=== PATIENT | male | born 1950 | race Caucasian/White ===

== ENCOUNTER 2017-02-22 10:19 | Day surgery (SDC) | payer MEDICARE ==
[~2017-02-22] VITALS: Ht 167.6 cm; Wt 86.6 kg
[~2017-02-22 10:19] MED LIST: 0.9% Sodium Chloride 1,000 ML IV SCH; ALBU8.5H2 INHALATION; CHOL10008 PO; FEXO-123 PO; MOME13HF IH; OMEG-38 PO; OMEP20CA11 PO; Sodium Chloride LOK Flush 10 mL Syringe IV PRN; TRIA10.8 NS; TURM500C7 PO; VITA150T PO; fentaNYL-PF 50 mCg/mL 2 mL Inj IVPUSH PRN
[2017-02-22 11:03] VITALS: BP 137/80; PULSE 62; O2SAT 97
[2017-02-22] MEDS ORDERED: Albuterol 2.5 mg/3 mL Inhalation Solution NEB ONE (11:55)
[2017-02-22 11:58] VITALS: BP 136/81; PULSE 69; RESP 18; O2SAT 98
[2017-02-22 12:07] VITALS: BP 146/79; PULSE 66; RESP 17; O2SAT 96
[2017-02-22 12:18] VITALS: BP 144/76; PULSE 79; RESP 17; O2SAT 95
--- NOTE | 2017-02-22 16:26 | ENDO ---
[address] [address] ENDOSCOPY PROCEDURE PATIENT: CHACHO SOTO : 1950 MR#: [id number] ADMIT: 02/22/2017 JOB ID: [id number] DATE OF SERVICE: 02/22/2017 PROCEDURE: Colonoscopy. PREOPERATIVE DIAGNOSIS(ES): Colorectal cancer screening. POSTOPERATIVE DIAGNOSIS: Sigmoid diverticulosis. Esophagogastroduodenoscopy during this procedure was aborted due to patient was wheezing during the procedure. ANESTHESIA: Fentanyl 100 mcg, Versed 5 mg IV administered. COMPLICATIONS: None. BLOOD LOSS: Minimal. DESCRIPTION OF PROCEDURE: After risks and benefits explained to the patient, informed consent was obtained. After anesthesia administered, upper endoscope was attempted to intubate the esophagus and patient was wheezing during this procedure. Procedure was aborted. Colonoscope was inserted per rectum to the cecum. Mucosa carefully examined. Prep of the patient was good. After procedure, the scope withdrawn and procedure terminated. FINDINGS: Upon inspection of the anus, no masses, hemorrhoids, ulcers, or fissures that were seen. Throughout the entire examination, there were no polyps, masses, or lesions. There was mild sigmoid diverticulosis. Retroflexion was normal. IMPRESSION: Mild sigmoid diverticulosis. RECOMMENDATION: 1. High-fiber diet. 2. Repeat colonoscopy in 10 years for colorectal cancer screening. 3. The patient to reschedule EGD with anesthesia once the patient's shortness of breath has been resolved due to history of asthma.
== END 2017-02-22 23:59 | disposition home or self-care (01) ==
LOC: END 10:19
PROVIDERS: ATTEND Internal Medicine Gastroenterology
DX: Z12.11 Encounter for screening for malignant neoplasm of colon (principal); K57.30 Diverticulosis of large intestine without perforation or abscess without bleeding; R13.10 Dysphagia, unspecified; K22.2 Esophageal obstruction; J45.909 Unspecified asthma, uncomplicated; Z53.8 Procedure and treatment not carried out for other reasons
CPT/HCPCS: 43235; G0121; G0500; J2250; J3010; J7030; J7613